=== PATIENT | male | born 1965 | race Caucasian/White ===

== ENCOUNTER 2019-12-25 13:27 | Day surgery (SDC) | payer MEDICAID ==
--- NOTE | 2019-12-25 13:38 | ED Physician Documentation ---
PD HPI UPPER EXT INJURY - Stated complaint Stated Complaint: LT HAND INJURY - Chief complaint Chief Complaint: Laceration - History obtained from History obtained from: Patient - History of Present Illness Location: Left, Finger (ring, middle, index fingers) Type of injury: Laceration (table saw) Where injury occurred: Home Timing - onset: Today (just SURGICAL COORDINATOR) Timing - details: Abrupt onset, Still present Improved by: No: Rest Worsened by: Moving, Palpating Associated symptoms: Weakness (for movement of index and ring fingers) Similar symptoms before: Has not had sx before Review of Systems Constitutional: reports: Other (last ate about 10 am). denies: Fever, Chills Nose: denies: Rhinorrhea / runny nose, Congestion Throat: denies: Sore throat Cardiac: denies: Chest pain / pressure Respiratory: denies: Cough GI: denies: Abdominal Pain, Vomiting, Diarrhea Skin: reports: Laceration (s) (just today) PD PAST MEDICAL HISTORY - Past Medical History Past Medical History: No Cardiovascular: None Endocrine/Autoimmune: None - Present Medications Home Medications: Ambulatory Orders Medication Instructions Recorded Confirmed cephALEXin [Cephalexin] 500 mg PO Q6HR 3 Days #12 tablet 12/25/19 oxyCODONE [Roxicodone] 5 mg PO Q4-6H #14 tablet 12/25/19 - Allergies Allergies/Adverse Reactions: Allergies Allergy/AdvReac Type Severity Reaction Status Date / Time No Known Drug Allergies Allergy Verified 12/25/19 13:31 PD ED PE NORMAL - Vitals Vital signs reviewed: Yes - General General: Alert and oriented X 3, Well developed/nourished, Other (appears in pain due to fingers injury) - HEENT HEENT: Pharynx benign - Cardiac Cardiac: RRR, No murmur - Respiratory Respiratory: Clear bilaterally - Derm Derm: Normal color, Warm and dry - Extremities Extremities: Other (left fingers with significant lacerations: incex finger with vertical lac of finger on palmar radial aspect from PIP to tip, with exposure of some flexor tendons and bone at middle phalanx. middle finger with lac volar DIP. Ring finger with lac volar/radial middle phalanx with angulation at mid phal) - Neuro Neuro: Other (unable to flex at index finger tip. Extends weakly. Middle finger flex and exends. Ring finger painful for movement but does seem to extend. Not able to flex. Distal sensory decreased index finger. ) Results - Vitals Vitals: Vital Signs - 24 hr 12/25/19 12/25/19 12/25/19 13:31 13:32 14:47 Temperature 36.8 C Heart Rate 90 95 95 Respiratory 16 16 14 Rate Blood Pressure 169/86 H 146/103 H 135/83 H O2 Saturation 96 94 96 12/25/19 12/25/19 12/25/19 16:39 19:25 19:30 Temperature 36.2 C L 36.2 C L Heart Rate 86 75 69 Respiratory 16 16 16 Rate Blood Pressure 160/101 H 142/98 H 142/98 H O2 Saturation 99 97 98 12/25/19 12/25/19 12/25/19 19:35 19:43 19:48 Temperature 36.2 C L 36.3 C L 36.2 C L Heart Rate 70 82 80 Respiratory 16 16 18 Rate Blood Pressure 143/94 H 160/121 H 191/106 H O2 Saturation 98 100 99 12/25/19 12/25/19 12/25/19 19:55 19:59 20:03 Temperature 36.6 C 36.5 C 36.3 C L Heart Rate 78 78 77 Respiratory 16 16 16 Rate Blood Pressure 179/106 H 173/104 H 178/107 H O2 Saturation 100 96 95 12/25/19 12/25/19 12/25/19 20:08 20:25 20:29 Temperature 36.3 C L 36.2 C L 36.3 C L Heart Rate 81 75 76 Respiratory 16 16 16 Rate Blood Pressure 173/103 H 177/123 H 172/101 H O2 Saturation 96 96 96 12/25/19 12/25/19 20:45 21:00 Temperature 36.5 C 36.5 C Heart Rate 78 84 Respiratory 16 16 Rate Blood Pressure 189/104 H 167/112 H O2 Saturation 98 97 Oxygen O2 Source Room air - Labs Labs: Laboratory Tests 12/25/19 12/25/19 14:00 14:00 WBC 8.6 RBC 3.98 L Hgb 13.9 L Hct 39.9 L MCV 100.3 H MCH 34.9 H MCHC 34.8 RDW 12.4 Plt Count 134 MPV 11.3 Neut # (Auto) 5.2 Lymph # (Auto) 2.3 Darke # (Auto) 0.7 Eos # (Auto) 0.2 Baso # (Auto) 0.1 Absolute Nucleated RBC 0.00 Nucleated RBC % 0.0 Sodium 134 L Potassium 3.8 Chloride 98 L Carbon Dioxide 23 Anion Gap 13.0 BUN 18 Creatinine 0.9 Estimated GFR (MDRD) 88 L Glucose 141 H Calcium 9.8 Total Bilirubin 2.4 H AST 171 H ALT 73 H Alkaline Phosphatase 103 Total Protein 8.5 H Albumin 4.2 Globulin 4.3 H Albumin/Globulin Ratio 1.0 Lipase 29 - Rads (name of study) left hand Radiology: Prelim report reviewed (fractures at ring and index fingers, with soft tissue defects. No FB noted. ), See rad report PD MEDICAL DECISION MAKING - ED course Complexity details: reviewed results, considered differential (IV and pain meds. Wound irrigated copiously by nursing. No FBs seen. Bleeding minimal from index finger only. Wet dressing applied. Ancef given. Ortho consulted and came as soon as out from OR case. ), d/w patient Departure - Departure Disposition: ED Transfer to [facility] Clinical Impression: Contact with powered saw as cause of accidental injury Finger laceration Qualifiers: Encounter type: initial encounter Finger: unspecified finger Damage to nail status: without damage Foreign body presence: without foreign body Laterality: left Qualified Code(s): S61.219A - Laceration without foreign body of unspecified finger without damage to nail, initial encounter Fracture, finger, open Qualifiers: Encounter type: initial encounter Finger: ring finger Phalanx: middle Fracture alignment: displaced Laterality: left Qualified Code(s): S62.625B - Displaced fracture of middle phalanx of left ring finger, initial encounter for open fracture Condition: Stable Record reviewed to determine appropriate education?: Yes Discharge Date/Time: 12/25/19 17:12
[2019-12-25] MEDS ORDERED: LIDOCAINE 2% 50 ML MDV SUBQ STA (13:39)
[2019-12-25] MEDS ORDERED: HYDROmorphone 1 MG/ML CARPUJECT IVP STA ×3 (13:45→15:55)
[2019-12-25] MEDS ORDERED: ONDANSETRON 4 MG/2 ML VIAL IVP STA (13:45)
[2019-12-25] MEDS ORDERED: KETOROLAC 30 MG/ML VIAL IVP STA (13:47)
[2019-12-25] MEDS ORDERED: HYDROmorphone 1 MG/ML CARPUJECT ONE (13:47)
[2019-12-25] MEDS ORDERED: ONDANSETRON 4 MG/2 ML VIAL ONE (13:48)
[2019-12-25] MEDS ORDERED: LIDOCAINE-MPF 2% 5 ML VIAL SUBQ STA (13:48)
[2019-12-25 14:04] LABS: BASOPHILS # (AUTO) 0.1 10^3/uL (0.0-0.1); BASOPHILS % (AUTO) 0.9 %; EOSINOPHILS # (AUTO) 0.2 10^3/uL (0.0-0.7); EOSINOPHILS % (AUTO) 2.8 %; HGB - HEMOGLOBIN 13.9 g/dL (14.0-18.0); LYMPHOCYTES # (AUTO) 2.3 10^3/uL (1.5-3.5); LYMPHOCYTES % (AUTO) 26.8 %; MEAN CORPUSCULAR HEMOGLOBIN 34.9 pg (27.0-31.0); MEAN CORPUSCULAR HGB CONC 34.8 g/dL (32.0-36.0); MEAN CORPUSCULAR VOLUME 100.3 fL (80.0-94.0); MEAN PLATELET VOLUME 11.3 fL (7.4-11.4); MONOCYTES # (AUTO) 0.7 10^3/uL (0.0-1.0); MONOCYTES % (AUTO) 8.4 %; NEUTROPHILS # (AUTO) 5.2 10^3/uL (1.5-6.6); NEUTROPHILS % (AUTO) 60.8 %; PLT - PLATELET COUNT 134 10^3/uL (130-450); RED BLOOD COUNT 3.98 10^6/uL (4.70-6.10); RED CELL DISTRIBUTION WIDTH 12.4 % (12.0-15.0); WHITE BLOOD COUNT 8.6 x10^3/uL (4.8-10.8)
[2019-12-25 14:15] LABS: ALBUMIN 4.2 g/dL (3.2-5.5); BILIRUBIN,TOTAL 2.4 mg/dL (0.2-1.0); CALCIUM 9.8 mg/dL (8.5-10.3); CREATININE 0.9 mg/dL (0.6-1.2); TOTAL PROTEIN 8.5 g/dL (6.7-8.2)
[2019-12-25] MEDS ORDERED: ceFAZolin 2 GM in SODIUM CHLORIDE 0.9% 100ML 100 ML IV STA (14:16)
--- NOTE | 2019-12-25 14:38 | XRAY Report ---
PROCEDURE: Hand 3 View LT INDICATIONS: fingers injured with table saw TECHNIQUE: 4 views of the hand(s) acquired. COMPARISON: None FINDINGS: Comminuted fracture of the middle phalanx of the ring finger. The distal phalanx is not well evaluate d due to patient positioning. The proximal phalanx of the ring finger appears grossly intact. There i s associated soft tissue laceration and injury, swelling of the ring finger. First CMC and triscaphe joint generation. Soft tissues: No suspicious soft tissue calcifications. IMPRESSION: Severely comminuted fracture of the ring finger middle phalanx as detailed above. Associated soft tis tressa injury and laceration Reviewed by: Nakul Brooks MD on 12/25/2019 2:36 PM PDT Approved by: Nakul Brooks MD on 12/25/2019 2:36 PM PDT Station ID: [id number]
[2019-12-25] MEDS ORDERED: LACTATED RINGERS 1,000 ML IV STA (15:56)
--- NOTE | 2019-12-25 16:32 | ANESTHESIA ---
Pre-Anesthesia VS, & Labs - Diagnosis table saw injury left hand - Procedure I&D of left hand, bone and soft tissue injury left 2nd, 3rd 4th fingers Vital Signs: Temp Pulse Resp BP Pulse Ox 36.8 C 95 14 135/83 H 96 12/25/19 13:31 12/25/19 14:47 12/25/19 14:47 12/25/19 14:47 12/25/19 14:47 Height 5 ft 8 in Weight (kg) 104.326 kg Body Mass Index 34.9 - NPO >8 hours (crackers and tuna at 1030) - Lab Results Current Lab Results: Laboratory Tests 12/25/19 14:00: Sodium 134 L, Potassium 3.8, Chloride 98 L, Carbon Dioxide 23, Anion Gap 13.0, BUN 18, Creatinine 0.9, Estimated GFR (MDRD) 88 L, Glucose 141 H , Calcium 9.8, Total Bilirubin 2.4 H, AST 171 H, ALT 73 H, Alkaline Phosphatase 103, Total Protein 8.5 H, Albumin 4.2, Globulin 4.3 H, Albumin/Globulin Ratio 1.0, Lipase 29 12/25/19 14:00: WBC 8.6, RBC 3.98 L, Hgb 13.9 L, Hct 39.9 L, MCV 100.3 H, MCH 34.9 H, MCHC 34.8, RDW 12.4, Plt Count 134, MPV 11.3, Neut # (Auto) 5.2, Lymph # (Auto) 2.3, [place] # (Auto) 0.7, Eos # (Auto) 0.2, Baso # (Auto) 0.1, Absolute Nucleated RBC 0.00, Nucleated RBC % 0.0 Lab results reviewed: Yes Fish Bones: 12/25/19 14:00 12/25/19 14:00 Home Medications and Allergies Home Medications: Ambulatory Orders No Known Home Medications 12/25/19 Active Medications Lactated Ringer's (Lr) 1,000 mls @ 500 mls/hr IV .Q2H STA Stop: 12/25/19 17:55 Last Admin: 12/25/19 16:05 Dose: 500 mls/hr Documented by: No Known Home Medications 12/25/19 Allergies/Adverse Reactions: Allergies Allergy/AdvReac Type Severity Reaction Status Date / Time No Known Drug Allergies Allergy Verified 12/25/19 13:31 Anes History & Medical History - Anesthetic History Family history of Anesthesia Complications: Denies Family history of Malignant Hyperthermia: Denies - Medical History Cardiovascular: reports: Hypertension (on no meds, patient states physician told him it was from pain from hip replacement need.) Smoking Status: Never smoker Exam General: Alert, Oriented x3, Cooperative, No acute distress Dental: Poor dentition Mouth Openin Fingerbreadth Neck Mobility: Normal Mallampati classification: II Respiratory: Lungs clear, Normal breath sounds, No respiratory distress, No accessory muscle use Cardiovascular: Regular rate, Normal S1, Normal S2, No murmurs Plan Anesthesia Type: General Consent for Procedure(s) Verified and Reviewed: Yes Code Status: Attempt Resuscitation ASA classification: 2-Mild systemic disease Is this case an emergency?: Yes
--- NOTE | 2019-12-25 16:35 | HISTORY & PHYSICAL EXAMINATION ---
HPI - History Obtained From History obtained from: Patient Exam limitations: Clinical condition (This is a 54-year-old man who sustained an injury to the left second, third and fourth fingers of his nondominant hand. The injury occurred while using a skill saw to cut a 2 x 6. Apparently the saw blade became jammed and jerked back over his left hand injuring the dorsal aspects primarily of the) - History of Present Illness HPI Comment/Other: This 54-year-old man sustained a skill saw injury to the nondominant left hand when the sawblade jammed while cutting a 2 x 6 piece of pine. The sawblade kicked back running over the dorsal aspects primarily of the left second, third and fourth fingers. He came to the emergency room shortly after injury. He has been given Ancef. He had been given local anesthesia to the fingers to help with examining the hand by the emergency room physician before my examination. He has had x-rays of the left hand. He denies any previous problems with the left hand. He does smoke cigarettes, approximately 2 to 3/day. PMH/PSH - Past Medical History Cardiovascular: positive: Hypertension (on no meds, patient states physician told him it was from pain from hip replacement need.) MRSA Hx?: No Social & Family Hx - Social History Does the pt smoke?: No Smoking Status: Never smoker Does the pt drink ETOH?: No Does the pt have substance abuse?: No - POLST Patient has POLST: No Meds/Allgy - Home Medications Home Medications: Ambulatory Orders Medication Instructions Recorded Confirmed No Known Home Medications 12/25/19 12/25/19 - Allergies Allergies/Adverse Reactions: Allergies Allergy/AdvReac Type Severity Reaction Status Date / Time No Known Drug Allergies Allergy Verified 12/25/19 13:31 Exam - Vital Signs Vital Signs: Vital Signs x48h Temp Pulse Resp BP Pulse Ox 12/25/19 14:47 95 14 135/83 H 96 12/25/19 13:32 95 16 146/103 H 94 12/25/19 13:31 36.8 C 90 16 169/86 H 96 - Physical Exam General Appearance: positive: Moderate distress Eyes Bilateral: positive: Normal inspection ENT: positive: ENT inspection nml Neck: positive: Nml inspection Respiratory: positive: Chest non-tender Cardiovascular: positive: Regular rate & rhythm Peripheral Pulses: positive: 2+ Abdomen: positive: Non-tender Skin: positive: Color nml Extremities: positive: Shabbir's sign/cords, Other (The examination shows mild to no lateral Bleich lacerations to the second third and fourth fingers of left hand, slightly untidy but without gross contamination. The fourth finger is unstable with obvious open fracture through the middle phalanx shaft. Tendon function appears to be intact to janee) Neurologic/Psychiatric: positive: Oriented x3 Results - Lab Results Fish Bones: 12/25/19 14:00 12/25/19 14:00 Other Lab Results: Lab Results x24hrs 12/25/19 12/25/19 Range/Units 14:00 14:00 WBC 8.6 (4.8-10.8) x10^3/uL RBC 3.98 L (4.70-6.10) 10^6/uL Hgb 13.9 L (14.0-18.0) g/dL Hct 39.9 L (42.0-52.0) % MCV 100.3 H (80.0-94.0) fL MCH 34.9 H (27.0-31.0) pg MCHC 34.8 (32.0-36.0) g/dL RDW 12.4 (12.0-15.0) % Plt Count 134 (130-450) 10^3/uL MPV 11.3 (7.4-11.4) fL Neut # (Auto) 5.2 (1.5-6.6) 10^3/uL Lymph # (Auto) 2.3 (1.5-3.5) 10^3/uL [place] # (Auto) 0.7 (0.0-1.0) 10^3/uL Eos # (Auto) 0.2 (0.0-0.7) 10^3/uL Baso # (Auto) 0.1 (0.0-0.1) 10^3/uL Absolute Nucleated RBC 0.00 x10^3/uL Nucleated RBC % 0.0 /100WBC Sodium 134 L (135-145) mmol/L Potassium 3.8 (3.5-5.0) mmol/L Chloride 98 L (101-111) mmol/L Carbon Dioxide 23 (21-32) mmol/L Anion Gap 13.0 (6-13) BUN 18 (6-20) mg/dL Creatinine 0.9 (0.6-1.2) mg/dL Estimated GFR (MDRD) 88 L (>89) Glucose 141 H (70-100) mg/dL Calcium 9.8 (8.5-10.3) mg/dL Total Bilirubin 2.4 H (0.2-1.0) mg/dL AST 171 H (10-42) IU/L ALT 73 H (10-60) IU/L Alkaline Phosphatase 103 (42-121) IU/L Total Protein 8.5 H (6.7-8.2) g/dL Albumin 4.2 (3.2-5.5) g/dL Globulin 4.3 H (2.1-4.2) g/dL Albumin/Globulin Ratio 1.0 (1.0-2.2) Lipase 29 (22-51) U/L - Diagnostic Imaging Results Diagnostic Imaging Results: positive: Read independently. negative: Other (There is obvious fracture through the middle phalanx of the left fourth finger, displaced and slightly comminuted. There may be subtle fractures to the adjacent fingers. X-ray technique is compromised by patient positioning.) Impression/Plan - Problem List Problem List: Open fracture left fourth finger, soft tissue injuries to left second, third and fourth fingers Plan irrigation and debridement of open fractures and soft tissues with open reduction of open fracture and repair of soft tissue injuries to left second, third and fourth fingers. I have discussed the risk, goals and alternatives including permanent disability from stiffness, altered sensation from nerve damage and possible nonunion needing further surgical repair. He is in agreement to surgery and has signed informed consent.
[2019-12-25] MEDS ORDERED: fentaNYL 100 MCG/2 ML VIAL IVP ONE (17:01)
[2019-12-25] MEDS ORDERED: ACETAMINOPHEN 1,000 MG/100 ML 100 ML IV ONE (17:01)
[2019-12-25] MEDS ORDERED: LIDOCAINE-MPF 2% 5 ML VIAL IM ONE (17:01)
[2019-12-25] MEDS ORDERED: SUCCINYLCHOLINE 200 MG/10 ML VIAL IVP ONE (17:01)
[2019-12-25] MEDS ORDERED: MIDAZOLAM 2 MG/2 ML VIAL IVP ONE (17:01)
[2019-12-25] MEDS ORDERED: PROPOFOL 200 MG/20 ML VIAL IVP ONE (17:01)
[2019-12-25] MEDS ORDERED: ONDANSETRON 4 MG/2 ML VIAL IVP ONE (17:01)
[2019-12-25] MEDS ORDERED: DEXAMETHASONE 4 MG/ML VIAL IVP ONE (17:01)
[2019-12-25] MEDS ORDERED: BACITRACIN ZINC OINT 1 PACKET TOP ONE (19:00)
[2019-12-25] MEDS ORDERED: BUPIVACAINE 0.25% PF 30 ML VIAL ONE (19:01)
[2019-12-25] MEDS ORDERED: HYDROcod/ACETAM 5/325 MG TABLET PO PRN (19:17)
[2019-12-25] MEDS ORDERED: HYDROcod/ACETAM 10 MG/325 MG TABLET PO PRN (19:17)
--- NOTE | 2019-12-25 19:20 | OPERATIVE REPORT ---
Operative Report - General Procedure Date: 12/25/19 Pre-Op Diagnosis: Skill saw injury to left second, third and fourth fingers with open fractur Procedure Performed: Irrigation debridement of lacerations and fractures to left second, third and fourth fingers, open reduction internal fixation middle phalanx left fourth finger with multiple K wires, repair of lacerations measuring 15 cm to digits. Post Op Diagnosis: Same as preop; multiple lacerations left second, third and fourth fingers w - Procedure Note Primary Surgeon: Dr. Jayme Lockwood Secondary Surgeon: APOLLO Livingston Anesthesia Provider: Maurilio Dunham Anesthesia Technique: General ET tube Estimated Blood Loss (mL): 5 Indications: He is received lacerations to the second third and fourth fingers withThipedrito is a 54-year-old man who sustained a skill saw injury to his nondominant left hand. Fractures to the second and fourth middle phalanges. The lacerations were jagged, irregular and avulsion type lacerations. The fracture of the second finger is a divot type fracture to the bone with missing bone. The fracture of the middle phalanx of the left fourth finger was comminuted, transverse and unstable if needed. The flexor tendons were intact to all fingers. There is a small tear to the extensor strickland of the left third finger. I suspect injury to the radial neurovascular bundle to the index finger and possibly to the ring finger. Findings: There was 2 large lacerations to the index finger with disruption of the flexor tendon sheath but the flexor tendons to the middle phalangeal region were intact. There was a divot type fracture where the sawblade entered and removed bone but was incomplete to the middle phalanx of the left second finger. I suspect the radial neurovascular bundleWas disruptED from traumatic sawblade injury. The left third finger had a tear over the radial aspect of the proximal interphalangeal joint but extension was intact prior to surgery. This was an incomplete extensor tendon tear. The left ring finger had a large laceration over the fracture of the middle phalanx. The fracture was to the shaft of the middle phalanx. The fracture to the middle phalanx of the left fourth finger was unstable, and comminuted. - Other Other Information/Narrative: The patient was brought to the operating room table and placed in a supine position. The left arm was placed over an arm extension table. A pneumatic tourniquet was applied to the proximal left arm over cast padding. A timeout procedure was performed by the entire operating room team and all were in agreement. The physician supply assistant was utilized to facilitate exposure and stabilization of fractures to the left hand. The patient's left hand was prepped draped in a sterile manner in the usual fashion. The pneumatic tourniquet was elevated after elevation of the arm to exsanguinate the limb. The lacerations and open fractures were thoroughly debrided irrigated with 3 L of normal saline using a bulb syringe. The lacerations were sharply debrided with a scalpel and sharp iris scissors to try to create clean wound edges. The index finger had a large flap extending from proximal to distal. The flap appeared to be viable.Third finger had aThe incomplete tear of the extensor strickland radially. The fracture of the middle phalanx of the left fourth finger was thoroughly irrigated. The fracture of the second finger middle phalanx was indentation. The indentation to the middle phalanx of the second finger probably injured the radial neurovascular bundle. The index finger appeared to be viable. After thorough irrigation. The multiple lacerations were closed with simple 4-0 nylon suture. The fracture of the middle phalanx of left fourth finger was reduced and stabilized with a 3.062 inch Omid wires that were inserted with a mini new car driver from the tip of the distal phalanx across the fracture. The proximal interphalangeal joint of the left fourth finger was left intact to allow full range of motion. The mini C arm intensifier was used for fracture and K wire visualization. Clinically, there was no deformity to the left fourth finger after stabilization. The K wires were capped with sterile Fernando balls. The wounds were dressed with bacitracin, Adaptic and tube gauze dressings. He had received 2 g of Ancef in the emergency room and 2 additional grams at the completion of the procedure. He tolerated the procedure well.
[2019-12-25] MEDS ORDERED: LACTATED RINGERS 1,000 ML IV ONE (19:23)
[2019-12-25] MEDS ORDERED: BUPIVACAINE 0.25% PF 30 ML VIAL SUBQ ONE (19:27)
[2019-12-25] MEDS ORDERED: HYDROmorphone 0.5 MG/0.5 ML SYRINGE IVP PRN (19:33)
[2019-12-25] MEDS ORDERED: MORPHINE 2 MG/ML CARPUJECT IVP PRN (19:33)
[2019-12-25] MEDS ORDERED: ePHEDrine 50 MG/ML VIAL IVP PRN (19:33)
[2019-12-25] MEDS ORDERED: METOCLOPRAMIDE 10 MG/2 ML VIAL IVP PRN (19:33)
[2019-12-25] MEDS ORDERED: ATROPINE ABBOJECT 1 MG/10 ML SYRINGE IVP PRN (19:33)
[2019-12-25] MEDS ORDERED: NALOXONE 0.4 MG/ML VIAL IVP PRN (19:33)
[2019-12-25] MEDS ORDERED: ONDANSETRON 4 MG/2 ML VIAL IVP PRN (19:33)
[2019-12-25] MEDS ORDERED: fentaNYL 100 MCG/2 ML VIAL IVP PRN (19:33)
[2019-12-25] MEDS ORDERED: LORazepam 2 MG/ML VIAL IVP PRN (19:56)
[2019-12-25] MEDS ORDERED: LACTATED RINGERS 1,000 ML IV SCH (20:00)
--- NOTE | 2019-12-25 20:14 | ANESTHESIA POST OP EVALUATION ---
Anesthesia Post Eval - Post Anesthesia Eval Vitals: Last Vital Signs Temp 36.3 C L 12/25/19 20:08 Pulse 81 12/25/19 20:08 Resp 16 12/25/19 20:08 BP 173/103 H 12/25/19 20:08 Pulse Ox 96 12/25/19 20:08 CV Function Including HR & BP: positive: Stable (patient hypertensive before with no treatment at home.) Pain Control: positive: Satisfactory Nausea & Vomiting: positive: Negative Mental Status: positive: Baseline Respiratory Status: Airway Patent Hydration Status: Satisfactory Anesthesia Complications: positive: None
[2019-12-25 21:09] VITALS: BP 167/112
== END 2019-12-25 21:20 | disposition home or self-care (01) ==
LOC: ED 13:27 → SDS 16:00 → MS2 20:49 → SDS 21:20
PROVIDERS: ATTEND Orthopaedic Surgery
DX: S62.625B Displaced fracture of middle phalanx of left ring finger, initial encounter for open fracture (principal); S62.621B Displaced fracture of middle phalanx of left index finger, initial encounter for open fracture; S61.211A Laceration without foreign body of left index finger without damage to nail, initial encounter; S61.213A Laceration without foreign body of left middle finger without damage to nail, initial encounter; S61.215A Laceration without foreign body of left ring finger without damage to nail, initial encounter; W31.2XXA Contact with powered woodworking and forming machines, initial encounter; Y92.009 Unspecified place in unspecified non-institutional (private) residence as the place of occurrence of the external cause; I10 Essential (primary) hypertension
CPT/HCPCS: 12045; 26735; 36415; 73130; 80053; 83690; 85025; 96365; 96375; 96376; 99284; 99285; A9270; C1713; J0131; J0330; J1170; J2060; J7120